=== PATIENT | female | born 1965 | race Caucasian/White ===

== ENCOUNTER 2016-12-26 20:19 | Emergency (ER) | payer OTHER | END 2016-12-27 02:08 | disposition critical access hospital (66) | LOC: ER 20:19 | DX: R10.11 Right upper quadrant pain (principal); R11.0 Nausea; I10 Essential (primary) hypertension; E78.00 Pure hypercholesterolemia, unspecified; Z79.899 Other long term (current) drug therapy | CPT/HCPCS: 96361; 96374; 96375 ==

== ENCOUNTER 2016-12-26 20:19 | Observation (INO) | payer OTHER ==
[~2016-12-26] VITALS: Ht 149.9 cm; Wt 72.1 kg
== END 2016-12-29 12:07 | disposition home or self-care (01) ==
LOC: ER 20:19 → MED 12-27 02:09
PROVIDERS: ADMIT Internal Medicine Cardiovascular Disease
DX: R10.11 Right upper quadrant pain (principal); R79.89 Other specified abnormal findings of blood chemistry; E86.0 Dehydration; I10 Essential (primary) hypertension; G89.4 Chronic pain syndrome; E03.9 Hypothyroidism, unspecified; K21.9 Gastro-esophageal reflux disease without esophagitis; J44.9 Chronic obstructive pulmonary disease, unspecified; F32.9 Major depressive disorder, single episode, unspecified; F17.210 Nicotine dependence, cigarettes, uncomplicated; Z86.19 Personal history of other infectious and parasitic diseases; Z79.899 Other long term (current) drug therapy
CPT/HCPCS: 36415; 96361; 96372; 96374; 96375; 96376; G0378; J1200; J1650; J2550